=== PATIENT | female | born 1995 | race Caucasian/White ===

== ENCOUNTER 2018-04-23 17:23 | Emergency (ER) | payer OTHER ==
[2018-04-23] MEDS ORDERED: SODIUM CHLORIDE 0.9% 1,000 ML IV ONE (17:57)
[2018-04-23 18:45] LABS: Anisocytosis Slight; Basophils # (A) 0.1 k/uL (0-0.2); Basophils % (A) 1 %; Eosinophils # (A) 0.4 k/uL (0-0.7); Eosinophils % (A) 4 %; HGB 11.3 gm/dL (11.4-16.0); Hypochromasia Slight; Lymphocytes # (A) 1.9 k/uL (1.0-4.8); Lymphocytes % (A) 22 %; MCH 22.7 pg (25.0-35.0); MCHC 30.5 g/dL (31.0-37.0); MCV 74.5 fL (80.0-100.0); Microcytosis Moderate; Monocytes # (A) 0.4 k/uL (0-1.0); Monocytes % (A) 4 %; Neutrophils # (A) 5.9 k/uL (1.3-7.7); Neutrophils % (A) 68 %; Platelet Count 305 k/uL (150-450); RBC 4.97 m/uL (3.80-5.40); WBC 8.7 k/uL (3.8-10.6)
[2018-04-23 18:59] LABS: ALT 35 U/L (9-52); AST 23 U/L (14-36); Albumin 4.3 g/dL (3.5-5.0); Alkaline Phosphatase 55 U/L (38-126); Anion Gap 11 mmol/L; Blood Urea Nitrogen 15 mg/dL (7-17); Calcium 9.3 mg/dL (8.4-10.2); Carbon Dioxide 24 mmol/L (22-30); Chloride 106 mmol/L (98-107); Glucose 82 mg/dL (74-99); Potassium 3.6 mmol/L (3.5-5.1); Sodium 141 mmol/L (137-145); Total Bilirubin 0.4 mg/dL (0.2-1.3); Total Protein 7.5 g/dL (6.3-8.2)
[2018-04-23 19:12] VITALS: TEMP 98.4
[2018-04-23 19:12] LABS: HCG,Quantitative Serum 3.5 mIU/mL
--- NOTE | 2018-04-23 20:02 | US ---
EXAMINATION TYPE: Transabdominal DATE OF EXAM: 04/23/2018 6:59 PM COMPARISON: Early OB in 2013 CLINICAL HISTORY: pain. Pt states vaginal bleeding that started today/ denies pain EXAM PERFORMED: Transvaginal (TV) and Transabdominal (TA) EXAM MEASUREMENTS: GESTATIONAL AGE / DATING Physician Established: Not yet established Dates by LMP: (4 weeks/6 days) EDC: 12/25/2018 Dates by First Scan: No prior Dates by Current Scan for: No IUP seen at this time MATERNAL ANATOMY Uterus: 7.9 x 3.9 x 4.6 cm Right Ovary: 3.0 x 1.9 x 1.8 cm Left Ovary: Unable to visualize normal left ovary, large echogenic area within left adnexa= 7.3 x 3.6 x 6.4 cm ?bowel vs. possible dermoid vs. other etiology Post CDS / Adnexa: left adnexal abnormality Presence of free fluid: No Presence of corpus luteal cyst: No GESTATION / SURVEY IUP: No IUP seen at this time, endo thickness= 1.7 cm Date of LMP: 03/20/2018 Beta HcG (if available): Not available at this time IMPRESSION: Uterus is empty. Solid mass in the left adnexal region is seen. Margins are indistinct. Follow-up is recommended. No evidence of a gestational sac. No free fluid. CT scan would be useful for further evaluation if cl inically indicate d.
--- NOTE | 2018-04-23 20:07 | ED ---
Female Urogenital HPI - General Chief complaint: Vaginal Bleeding Stated complaint: Bleeding-6 wks pg Time Seen by Provider: 04/23/18 17:56 Source: patient Mode of arrival: ambulatory Limitations: no limitations - History of Present Illness Initial comments: 23-year-old female presenting today for chief complaint of positive test with vaginal bleeding. Patient states she took a positive test 2 weeks ago. She states her last menstrual period was 2017. Patient denies any abdominal cramping or pain. Patient denies any vaginal discharge fever chills or night sweats. Patient states she began bleeding today about an hour prior to presentation and presented for evaluation. Patient states the bleeding is not very heavy, however it is bright red blood. Patient denies any nausea or vomiting. Remaining review of systems negative, patient denies any recent fever, chills, shortness of breath, chest pain, numbness or tingling, dysuria or hematuria, constipation or diarrhea , headaches or visual changes, or any other complaints. Patient presents emergency department this evening with concern for spontaneous . Upon arrival patient's vital signs within normal limits. - Related Data Home Medications Medication Instructions Recorded Confirmed Beclomethasone Dipropionate [Qvar 1 - 2 puff INHALATION RT-BID 02/17/14 04/23/18 40 mcg/puff] Pnv with Ca,No.72/Iron/FA 1 each PO DAILY 02/17/14 04/23/18 [ Plus Multivitamin Tab] Albuterol Inhaler [Ventolin Hfa 2 puff INHALATION RT-Q4H PRN 04/23/18 04/23/18 Inhaler] Montelukast [Singulair] 10 mg PO DAILY 04/23/18 04/23/18 Allergies Allergy/AdvReac Type Severity Reaction Status Date / Time No Known Allergies Allergy Verified 04/23/18 18:08 Review of Systems ROS Statement: Those systems with pertinent positive or pertinent negative responses have been documented in the HPI. ROS Other: All systems not noted in ROS Statement are negative. Past Medical History Past Medical History: Asthma History of Any Multi-Drug Resistant Organisms: None Reported Past Surgical History: No Surgical Hx Reported Past Anesthesia/Blood Transfusion Reactions: No Reported Reaction Past Psychological History: Anxiety, Bipolar, PTSD Smoking Status: Never smoker Past Alcohol Use History: None Reported Past Drug Use History: None Reported - Past Family History Mother Family Medical History: Thyroid Disorder General Exam - General Exam Comments Initial Comments: General: The patient is awake and alert, in no distress, and does not appear acutely ill. Eye: Pupils are equal, round and reactive to light, extra-ocular movements are intact. No nystagmus. There is normal conjunctiva bilaterally. No signs of icterus. Ears, nose, mouth and throat: There are moist mucous membranes and no oral lesions. Neck: The neck is supple, there is no tenderness or JVD. Cardiovascular: There is a regular rate and rhythm. No murmur, rub or gallop is appreciated. Respiratory: Lungs are clear to auscultation, respirations are non-labored, breath sounds are equal. No wheezes, stridor, rales, or rhonchi. Gastrointestinal: Soft, non-distended, non-tender abdomen without masses or organomegaly noted. There is no rebound or guarding present. No CVA tenderness. Bowel sounds are unremarkable. Physical exam; no external lesions, vaginal mucosa pink well rugated, no evidence of discharge. There is blood in vaginal vault this is small, no evidence of vaginal laceration. Cervical os open. Adnexal or cervical motion tenderness. No palpable masses. Musculoskeletal: Normal ROM, no tenderness. Strength 5/5. Sensation intact. Radial pulses equal bilaterally 2+. Neurological: A&O x 3. CN II-XII intact, There are no obvious motor or sensory deficits. Coordination appears grossly intact. Speech is normal. Skin: Skin is warm and dry and no rashes or lesions are noted. Psychiatric: Cooperative, appropriate mood & affect, normal judgment. Limitations: no limitations Course Vital Signs 04/23/18 04/23/18 04/23/18 17:29 19:10 20:16 Temperature 97.6 F 98.4 F Pulse Rate 72 59 L 75 Respiratory 20 17 18 Rate Blood Pressure 132/75 135/78 117/68 O2 Sat by Pulse 99 100 100 Oximetry Medical Decision Making - Medical Decision Making Appearing 23-year-old female. Patient has painless vaginal bleeding with positive test 2 weeks prior concerning for miscarriage. Eyes open on pelvic examination with small amount of blood. HCG Quant extremely low within normal limits for typical female concerning for miscarriage. Ultrasound revealed no intrauterine or uterine however there was evidence of a mass in the left adnexa not consistent with ectopic however concerning for dermoid or possibly bowel. We did consult CRYPTOGRAPHY TEACHER attending provider Dr. Garrett spoke with entertainment & media correspondent physician Dr Elizondo. He recommended outpatient f/ u. All findings including incidental finding were discussed with patient. She verbalizes understanding. Patient is A+. No program indicated at this time. Patient requesting discharge stating she will take her IV out herself if it is not removed now so she can leave. At this time both myself and attending provider comfortable discharge. Patient discharged stable condition. Hemodynamically stable with vital signs within acceptable limits. return parameters were discussed the patient who verbalizes understanding, this including immediate return for any pain - Lab Data Result diagrams: 04/23/18 18:30 04/23/18 18:30 Lab Results 04/23/18 04/23/18 04/23/18 Range/Units 18:30 18:30 18:30 WBC 8.7 (3.8-10.6) k/uL RBC 4.97 (3.80-5.40) m/uL Hgb 11.3 L (11.4-16.0) gm/dL Hct 37.0 (34.0-46.0) % MCV 74.5 L (80.0-100.0) fL MCH 22.7 L (25.0-35.0) pg MCHC 30.5 L (31.0-37.0) g/dL RDW 18.0 H (11.5-15.5) % Plt Count 305 (150-450) k/uL Neutrophils % 68 % Lymphocytes % 22 % Monocytes % 4 % Eosinophils % 4 % Basophils % 1 % Neutrophils # 5.9 (1.3-7.7) k/uL Lymphocytes # 1.9 (1.0-4.8) k/uL Monocytes # 0.4 (0-1.0) k/uL Eosinophils # 0.4 (0-0.7) k/uL Basophils # 0.1 (0-0.2) k/uL Hypochromasia Slight Anisocytosis Slight Microcytosis Moderate Sodium 141 (137-145) mmol/L Potassium 3.6 (3.5-5.1) mmol/L Chloride 106 (98-107) mmol/L Carbon Dioxide 24 (22-30) mmol/L Anion Gap 11 mmol/L BUN 15 (7-17) mg/dL Creatinine 0.79 (0.52-1.04) mg/dL Est GFR (CKD-EPI)AfAm >90 (>60 ml/min/1.73 sqM) Est GFR (CKD-EPI)NonAf >90 (>60 ml/min/1.73 sqM) Glucose 82 (74-99) mg/dL Calcium 9.3 (8.4-10.2) mg/dL Total Bilirubin 0.4 (0.2-1.3) mg/dL AST 23 (14-36) U/L ALT 35 (9-52) U/L Alkaline Phosphatase 55 (38-126) U/L Total Protein 7.5 (6.3-8.2) g/dL Albumin 4.3 (3.5-5.0) g/dL HCG, Quant 3.5 mIU/mL Blood Type A Positive Blood Type Recheck No Disposition Clinical Impression: Vaginal bleeding in , Ovarian mass, left Disposition: HOME SELF-CARE Condition: Good Instructions (If sedation given, give patient instructions): Miscarriage (ED) Additional Instructions: Please use medication as discussed. Please follow-up with OBGYN in the next 1- 2 days. Please return to emergency room if the symptoms increase or worsen or for any other concerns. Is patient prescribed a controlled substance at d/c from ED?: No Referrals: Jose De Jesus Goode MD [Primary Care Provider] - 1-2 days Ciltaly Cruz DO [Doctor of Osteopathic Medicine] - 1-2 days Time of Disposition: 21:00
[2018-04-23 20:18] VITALS: BP 117/68; PULSE 75; RESP 18
== END 2018-04-23 21:05 | disposition home or self-care (01) ==
LOC: EC 17:23
DX: O20.9 Hemorrhage in early pregnancy, unspecified (principal); O34.81 Maternal care for other abnormalities of pelvic organs, first trimester; N83.8 Other noninflammatory disorders of ovary, fallopian tube and broad ligament; Z67.10 Type A blood, Rh positive; O99.511 Diseases of the respiratory system complicating pregnancy, first trimester; J45.909 Unspecified asthma, uncomplicated; Z79.51 Long term (current) use of inhaled steroids; Z79.899 Other long term (current) drug therapy; Z3A.01 Less than 8 weeks gestation of pregnancy
CPT/HCPCS: 36415; 76801; 80053; 84702; 85025; 86900; 86901; 96360; 96361; 99284

== ENCOUNTER → 2018-10-15 | Outpatient (CLI) | payer OTHER ==
[2018-10-15 11:29] LABS: HCT 36.1 % (34.0-46.0); HGB 11.4 gm/dL (11.4-16.0); MCH 26.4 pg (25.0-35.0); MCHC 31.7 g/dL (31.0-37.0); MCV 83.3 fL (80.0-100.0); Mean Platelet Volume 8.4; Platelet Count 224 k/uL (150-450); RBC 4.33 m/uL (3.80-5.40); RDW 15.8 % (11.5-15.5)
[2018-10-15 16:08] LABS: African American GFR (CKD) 139.6 (60.0-200.0)
[2018-10-15 17:45] LABS: HIV 1 AB Non-Reactive (Non-Reactive); HIV AB P24 Non-Reactive (Non-Reactive); HIV P24 AG Non-Reactive (Non-Reactive)
[2018-10-18 03:53] LABS: Toxoplasma Antibody (IgG) <3.0 IU/mL (<7.2); Toxoplasma Antibody (IgM) <3.0 AU/mL (<8.0)
== END | disposition home or self-care (01) ==
LOC: LABWHC1 10:58
PROVIDERS: ATTEND Obstetrics & Gynecology
DX: Z34.82 Encounter for supervision of other normal pregnancy, second trimester (principal)
CPT/HCPCS: 36415; 82565; 82947; 85027; 86762; 86777; 86778; 86780; 86850; 86900; 86901; 87340; 87390

== ENCOUNTER 2019-01-26 06:00 | Inpatient (IN) | payer OTHER ==
[2019-01-26] MEDS ORDERED: METHYLERGONOVINE 0.2 MG/ML 1 ML AMP IM PRN (06:48)
[2019-01-26] MEDS ORDERED: CARBOPROST TROMETHAMINE 250 MCG/ML 1 ML AMP IM PRN (06:48)
[2019-01-26] MEDS ORDERED: OXYTOCIN 10 UNIT/ML 1 ML VIAL IM PRN (06:48)
[2019-01-26] MEDS ORDERED: LIDOCAINE 0.5% (PF) 5 MG/ML (50 ML SDV) SQ PRN (06:48)
[2019-01-26] MEDS ORDERED: TERBUTALINE 1 MG/ML VIAL SQ PRN (06:48)
[2019-01-26] MEDS ORDERED: OXYTOCIN 30 UNITS/500 ML NS 30 UNIT in SALINE 1 500ML.BAG IV SCH (07:00)
[2019-01-26] MEDS ORDERED: LACTATED RINGERS 1,000 ML IV SCH ×2 (07:00)
[2019-01-26 07:25] LABS: Anisocytosis Slight; Basophils % (A) 0 %; Eosinophils # (A) 0.2 k/uL (0-0.7); Eosinophils % (A) 2 %; HCT 35.9 % (34.0-46.0); HGB 11.6 gm/dL (11.4-16.0); Hypochromasia Slight; Lymphocytes # (A) 1.9 k/uL (1.0-4.8); Lymphocytes % (A) 20 %; MCH 25.4 pg (25.0-35.0); MCHC 32.4 g/dL (31.0-37.0); MCV 78.3 fL (80.0-100.0); Microcytosis Slight; Monocytes # (A) 0.4 k/uL (0-1.0); Monocytes % (A) 4 %; Neutrophils % (A) 73 %; Platelet Count 259 k/uL (150-450); RBC 4.58 m/uL (3.80-5.40); RDW 16.2 % (11.5-15.5); WBC 9.5 k/uL (3.8-10.6)
[2019-01-26] MEDS ORDERED: fentaNYL (PF) 50 MCG/ML 5 ML AMP ONE (09:35)
[2019-01-26] MEDS ORDERED: SODIUM CHLORIDE 0.9% 100 ML BAG ONE (09:35)
[2019-01-26] MEDS ORDERED: ROPIVACAINE 5MG/ML 20ML VIAL ONE (09:35)
[2019-01-26] MEDS ORDERED: ROPIVACAINE 100 MG, fentaNYL (PF) 200 MCG in SODIUM CHLORIDE 0.9% 76 ML EPIDURAL ONE (10:39)
[2019-01-26] MEDS ORDERED: diphenhydrAMINE 25 MG CAP PO PRN (12:14)
[2019-01-26] MEDS ORDERED: WITCH HAZEL 1 EACH MED..PAD TOPICAL PRN (12:14)
[2019-01-26] MEDS ORDERED: diphenhydrAMINE 50 MG/ML 1 ML VIAL IVP PRN ×2 (12:14)
[2019-01-26] MEDS ORDERED: ZOLPIDEM 5 MG TAB PO PRN (12:14)
[2019-01-26] MEDS ORDERED: diphenhydrAMINE 50 MG CAP PO PRN (12:14)
[2019-01-26] MEDS ORDERED: SIMETHICONE 80 MG CHEWABLE PO PRN (12:14)
[2019-01-26] MEDS ORDERED: ACETAMINOPHEN TAB 325 MG TAB PO PRN (12:14)
[2019-01-26] MEDS ORDERED: HYDROCORTISONE 2.5% RECTAL CREAM 30 GM TUBE RECTAL PRN (12:14)
[2019-01-26] MEDS ORDERED: LANOLIN CREAM 5 GM TUBE TOPICAL PRN (12:14)
[2019-01-26] MEDS ORDERED: BENZOCAINE/MENTHOL SPRAY 1 GM/SPRAY AEROSOL TOPICAL PRN (12:14)
[2019-01-26] MEDS ORDERED: OXYTOCIN 20 UNITS/1000 ML NS 1,000 ML IV SCH (12:15)
[2019-01-26] MEDS: IBUPROFEN 600 MG TAB PO PRN (12:45)
--- NOTE | 2019-01-26 13:20 | P.HPOB ---
History of Present Illness H&P Date: 01/26/19 Chief Complaint: Intrauterine at term: Induction of labor Patient is a 23-year-old at 39 weeks 2 days' gestation who arrives for induction of labor. Her Precis course has been, complicated by late care which she initiated at approximately 23 weeks. At one point she did have some itching in her stretch rehman the concern was that she had possibility of cholestasis versus polyps a steroid cream was provided and improved symptoms. Otherwise she is feeling well and she is headed on remarkable . Pertinent labs do include A+ blood type Rh antibody was negative, rubella immune, hepatitis B surface antigen/RPR and HIV as well as groupie strep were all negative. A category 1 tracing is noted and artificial rupture membranes was performed with her dilated to 2 cm 70% effaced -2 station. Plan Pitocin augmentation of labor and she anticipates use of an epidural for analgesia. Past Medical History Past Medical History: Asthma History of Any Multi-Drug Resistant Organisms: None Reported Past Surgical History: No Surgical Hx Reported Past Anesthesia/Blood Transfusion Reactions: No Reported Reaction Past Psychological History: Anxiety, Bipolar, PTSD Smoking Status: Never smoker Past Alcohol Use History: None Reported Past Drug Use History: None Reported - Past Family History Mother Family Medical History: Thyroid Disorder Medications and Allergies Home Medications Medication Instructions Recorded Confirmed Type Beclomethasone Dipropionate [Qvar 1 - 2 puff INHALATION RT-BID 02/17/14 01/26/19 History 40 mcg/puff] RX: Pnv with Ca,No.72/Iron/FA 1 each PO DAILY 02/17/14 04/23/18 History [ Plus Multivitamin Tab] Montelukast [Singulair] 10 mg PO DAILY 04/23/18 01/26/19 History RX: Albuterol Inhaler [Ventolin 2 puff INHALATION RT-Q4H PRN 04/23/18 01/26/19 History Hfa Inhaler] Allergies Allergy/AdvReac Type Severity Reaction Status Date / Time No Known Allergies Allergy Verified 04/23/18 18:08 Exam Osteopathic Statement: *. No significant issues noted on an osteopathic structural exam other than those noted in the History and Physical/Consult. Vital Signs Temp Pulse Resp BP 01/26/19 12:45 82 18 129/60 01/26/19 12:30 82 18 123/56 01/26/19 12:15 86 18 147/65 01/26/19 12:00 92 18 150/58 01/26/19 11:45 98.0 F 100 18 155/72 01/26/19 06:45 98.2 F 16 135/76 Intake and Output 01/25/19 01/26/19 01/26/19 22:59 06:59 14:59 Other: Weight 87.453 kg - OBG Physical Exam Breast: both: normal (no masses) Abdomen: bowel sounds normal, no diffuse tenderness, no bruit present, no guarding noted, no hepatomegaly, no splenomegaly, no mass Vulva: both: normal Vagina: normal moisture, no discharge Cervix: no lesion, no discharge Uterus: normal size, normal contour Adnexa: both: normal Anus/Rectum: normal perianal skin, no rectal mass, no hemorrhoids, heme negative Results Result Diagrams: 01/26/19 07:05 Abnormal Lab Results - Last 24 Hours (Table) 01/26/19 Range/Units 07:05 MCV 78.3 L (80.0-100.0) fL RDW 16.2 H (11.5-15.5) %
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
[2019-01-26] MEDS ORDERED: ALBUTEROL NEBULIZED 2.5 MG/3 ML INHALATION STA ×2 (15:03→21:52)
[2019-01-26] MEDS: SENNOSIDES-DOCUSATE SODIUM 1 EACH TAB PO SCH (22:02)
[2019-01-26] MEDS ORDERED: ALBUTEROL NEBULIZED 2.5 MG/3 ML INHALATION PRN (22:18)
[2019-01-27] MEDS: SENNOSIDES-DOCUSATE SODIUM 1 EACH TAB PO SCH (08:36)
[2019-01-27] MEDS: IBUPROFEN 600 MG TAB PO PRN (08:36)
--- NOTE | 2019-01-27 08:47 | P.PNOBGVD ---
Subjective - Subjective Patient reports: Reports appetite normal, Reports voiding normally, Reports pain well controlled, Reports ambulating normally : doing well Objective - Latest Vital Signs Latest vital signs: Vital Signs Temp Pulse Pulse Resp BP 01/27/19 00:00 98.1 F 66 18 129/62 01/26/19 22:21 88 01/26/19 22:14 84 01/26/19 20:00 98.3 F 66 18 139/66 01/26/19 16:00 97.6 F 86 16 148/64 01/26/19 15:24 84 01/26/19 15:12 84 01/26/19 13:45 91 16 140/64 01/26/19 13:15 98.2 F 93 18 136/60 01/26/19 12:45 82 18 129/60 01/26/19 12:30 82 18 123/56 01/26/19 12:15 86 18 147/65 01/26/19 12:00 92 18 150/58 01/26/19 11:45 98.0 F 100 18 155/72 Intake and Output 01/26/19 01/27/19 01/27/19 22:59 06:59 14:59 Intake Total 500 Balance 500 Intake: Oral 500 Other: # Voids 1 1 - Exam Lungs: bilateral: normal Chest: Normal S1, Normal S2 Extremities: Present: normal Abdomen: Present: normal appearance, soft Uterus: Present: normal, firm Assessment and Plan Assessment: day #1. Patient is resting without new complaints. Vital signs are stable she did have 1 elevated blood pressure 149 systolic. Patient had no elevated blood pressures during her or intrapartum however I am going to precautionary check some preeclampsia labs. If her labs are normal and repeat blood pressures are fine she does wish to go home today and I feel that she is stable for this. Plan today is to continue routine care, check blood work, and some serial blood pressures. As above a fall is normal we'll continue to let her go home per her request. (1) Normal vaginal delivery Current Visit: Yes Status: Acute Code(s): O80 - ENCOUNTER FOR FULL-TERM UNCOMPLICATED DELIVERY SNOMED Code(s): 99502931
[2019-01-27 08:55] VITALS: RESP 16; TEMP 98.5
--- NOTE | 2019-01-27 08:55 | P.DS ---
Providers Date of admission: 01/26/19 06:34 Expected date of discharge: 01/27/19 Attending physician: Greg Richey Primary care physician: Stated None - Discharge Diagnosis(es) (1) Normal vaginal delivery Current Visit: Yes Status: Acute Hospital Course: Please see dictated H&P per Dr. Neff and this patient's admission. Brief summary this is a 23-year-old 4 para 1 female 39-2/7 weeks gestation is admitted to labor and delivery for requested induction of labor. Patient is admitted has uncomplicated induction of labor goes on have a vaginal delivery viable male infant. Please see dictated delivery note. patient did do well. She did have an elevated blood pressure I did check preeclampsia labs which are pending at time of this dictation. Procedures: Induction of labor and normal vaginal delivery Patient Condition at Discharge: Good Plan - Discharge Summary New Discharge Prescriptions: New Ibuprofen [Motrin] 600 mg PO Q6HR PRN #30 tab PRN Reason: Mild Pain Or Fever >= 100.5 No Action Beclomethasone Dipropionate [Qvar 40 mcg/puff] 1 - 2 puff INHALATION RT-BID Pnv with Ca,No.72/Iron/FA [ Plus Multivitamin Tab] 1 each PO DAILY Albuterol Inhaler [Ventolin Hfa Inhaler] 2 puff INHALATION RT-Q4H PRN PRN Reason: Dyspnea Montelukast [Singulair] 10 mg PO DAILY Discharge Medication List Beclomethasone Dipropionate [Qvar 40 mcg/puff] 1 - 2 puff INHALATION RT-BID 02/17/14 [History] Pnv with Ca,No.72/Iron/FA [ Plus Multivitamin Tab] 1 each PO DAILY 02/17/14 [History] Albuterol Inhaler [Ventolin Hfa Inhaler] 2 puff INHALATION RT-Q4H PRN 04/23/18 [History] Montelukast [Singulair] 10 mg PO DAILY 04/23/18 [History] Ibuprofen [Motrin] 600 mg PO Q6HR PRN #30 tab 01/27/19 [Rx] Follow up Appointment(s)/Referral(s): Greg Richey DO [Doctor of Osteopathic Medicine] - 03/11/19 11:15 am Patient Instructions/Handouts: Vaginal Delivery (DC) Activity/Diet/Wound Care/Special Instructions: No intercourse or anything per vagina for 6 weeks. Please call if any fever, chills, excessive vaginal bleeding, and/or abdominal pain. Discharge Disposition: HOME SELF-CARE
[2019-01-27 09:11] VITALS: PULSE 80
[2019-01-27 09:16] LABS: Anisocytosis Slight; Basophils % (A) 0 %; Eosinophils # (A) 0.1 k/uL (0-0.7); Eosinophils % (A) 1 %; HCT 32.5 % (34.0-46.0); HGB 10.3 gm/dL (11.4-16.0); Hypochromasia Slight; Lymphocytes # (A) 1.7 k/uL (1.0-4.8); Lymphocytes % (A) 17 %; MCH 24.9 pg (25.0-35.0); MCHC 31.7 g/dL (31.0-37.0); MCV 78.6 fL (80.0-100.0); Mean Platelet Volume 9.3; Microcytosis Slight; Monocytes # (A) 0.3 k/uL (0-1.0); Monocytes % (A) 3 %; Neutrophils # (A) 7.6 k/uL (1.3-7.7); Neutrophils % (A) 77 %; Platelet Count 211 k/uL (150-450); RBC 4.13 m/uL (3.80-5.40); RDW 16.2 % (11.5-15.5); WBC 9.8 k/uL (3.8-10.6)
[2019-01-27 09:28] LABS: Bilirubin, Delta 0.1 mg/dL (0.0-0.2); Bilirubin,Unconjugated 0.3 mg/dL (0.0-1.1); Total Bilirubin 0.4 mg/dL (0.2-1.3); Total Protein 5.6 g/dL (6.3-8.2); Uric Acid 5.5 mg/dL (3.7-7.4)
[2019-01-27 11:11] VITALS: BP 118/56
== END 2019-01-27 12:30 | disposition home or self-care (01) | DRG 807 ==
LOC: 4FBP 06:34
PROVIDERS: ADMIT Obstetrics & Gynecology; ATTEND Obstetrics & Gynecology
PROC: 3E033VJ Introduction of Other Hormone into Peripheral Vein, Percutaneous Approach (ICD-10-PCS; principal; 2019-01-26)
PROC: 10E0XZZ Delivery of Products of Conception, External Approach (ICD-10-PCS; 2019-01-26)
PROC: 0HQ9XZZ Repair Perineum Skin, External Approach (ICD-10-PCS; 2019-01-26)
DX: O99.344 Other mental disorders complicating childbirth (principal); Z37.0 Single live birth; O99.52 Diseases of the respiratory system complicating childbirth; O70.0 First degree perineal laceration during delivery; J45.909 Unspecified asthma, uncomplicated; F43.10 Post-traumatic stress disorder, unspecified; F31.9 Bipolar disorder, unspecified; F41.9 Anxiety disorder, unspecified; Z3A.39 39 weeks gestation of pregnancy; Z79.899 Other long term (current) drug therapy; O69.81X0 Labor and delivery complicated by cord around neck, without compression, not applicable or unspecified; R03.0 Elevated blood-pressure reading, without diagnosis of hypertension
CPT/HCPCS: 80076; 84550; 85025; 86850; 86900; 86901; 94640

== ENCOUNTER 2019-02-28 12:45 | Emergency (ER) | payer OTHER ==
[2019-02-28 13:53] VITALS: BP 139/81; PULSE 104; RESP 20; TEMP 97.8
[2019-02-28] MEDS ORDERED: PROPARACAINE 0.5% OPHTH DROPS 15 ML BTL RIGHT EYE STA (13:54)
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
== END 2019-02-28 14:11 | disposition home or self-care (01) ==
LOC: EC 12:45
DX: S05.01XA Injury of conjunctiva and corneal abrasion without foreign body, right eye, initial encounter (principal); J45.909 Unspecified asthma, uncomplicated; Z79.51 Long term (current) use of inhaled steroids; Z79.899 Other long term (current) drug therapy; W50.0XXA Accidental hit or strike by another person, initial encounter
CPT/HCPCS: 99283

== ENCOUNTER 2020-07-12 14:28 | Emergency (ER) | payer OTHER ==
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
[2020-07-12 15:51] LABS: Amphetamine Screen,Urine Not Detected (NotDetected); Barbiturate Screen,Urine Not Detected (NotDetected); Benzodiazepines Screen,Urine Not Detected (NotDetected); Cocaine Screen,Urine Not Detected (NotDetected); Methadone Screen, Urine Not Detected (NotDetected); Opiate Screen,Urine Not Detected (NotDetected); Oxycodone Screen, Urine Not Detected (NotDetected); Phencyclidine Screen,Urine Not Detected (NotDetected); Tricyclic Antidepressant,Urine Not Detected (NotDetected); Urn Cannabinoid Scrn Detected (NotDetected)
[2020-07-12 20:41] VITALS: BP 120/71; PULSE 70; RESP 17; TEMP 98.1
== END 2020-07-12 20:41 | disposition home or self-care (01) ==
LOC: EC 14:28
DX: F31.9 Bipolar disorder, unspecified (principal); F41.9 Anxiety disorder, unspecified; J45.909 Unspecified asthma, uncomplicated; Z79.51 Long term (current) use of inhaled steroids; Z79.899 Other long term (current) drug therapy
CPT/HCPCS: 80306; 99285

== ENCOUNTER 2020-10-13 11:06 | Emergency (ER) | payer OTHER ==
[2020-10-13 11:34] VITALS: BP 121/69; PULSE 79; RESP 16; TEMP 98.1
[2020-10-13] MEDS ORDERED: PROPARACAINE 0.5% OPHTH DROPS 15 ML BTL RIGHT EYE STA (11:41)
[2020-10-13] MEDS ORDERED: FLUORESCEIN STRIPS 1 MG STRIP RIGHT EYE ONE (11:42)
[2020-10-13] MEDS ORDERED: TOBRAMYCIN 0.3% OPHTH OINT 3.5 GM TUBE RIGHT EYE STA (12:16)
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
== END 2020-10-13 12:31 | disposition home or self-care (01) ==
LOC: EC 11:06
DX: S05.01XA Injury of conjunctiva and corneal abrasion without foreign body, right eye, initial encounter (principal); J45.909 Unspecified asthma, uncomplicated; F41.9 Anxiety disorder, unspecified; F31.9 Bipolar disorder, unspecified; F43.12 Post-traumatic stress disorder, chronic; F12.90 Cannabis use, unspecified, uncomplicated; X58.XXXA Exposure to other specified factors, initial encounter
CPT/HCPCS: 99283

== ENCOUNTER 2020-12-15 19:20 | Inpatient (IN) | payer MEDICAID, OTHER ==
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
[2020-12-15 20:13] LABS: Amphetamine Screen,Urine Not Detected (NotDetected); Barbiturate Screen,Urine Not Detected (NotDetected); Benzodiazepines Screen,Urine Not Detected (NotDetected); Cocaine Screen,Urine Not Detected (NotDetected); Methadone Screen, Urine Not Detected (NotDetected); Opiate Screen,Urine Not Detected (NotDetected); Oxycodone Screen, Urine Not Detected (NotDetected); Phencyclidine Screen,Urine Not Detected (NotDetected); Tricyclic Antidepressant,Urine Not Detected (NotDetected); Urn Cannabinoid Scrn Detected (NotDetected)
[2020-12-15] MEDS ORDERED: LORazepam 1 MG TAB PO PRN (21:54)
[2020-12-15] MEDS ORDERED: MAG HYDROX/AL HYDROX/SIMETH 30 ML CUP PO PRN (21:54)
[2020-12-15] MEDS ORDERED: ACETAMINOPHEN TAB 325 MG TAB PO PRN (21:54)
[2020-12-15] MEDS ORDERED: MAGNESIUM HYDROXIDE 2,400 MG/10 ML CUP PO PRN (21:54)
[2020-12-15] MEDS ORDERED: LORazepam 2 MG/ML INJ IM PRN (21:59)
[2020-12-15] MEDS ORDERED: haloperidoL 5 MG TAB PO PRN (22:00)
[2020-12-15] MEDS ORDERED: HALOPERIDOL LACTATE 5 MG/ML 1 ML VIAL IM PRN (22:00)
[2020-12-15] MEDS: ALBUTEROL HFA INHALER INHALATION PRN (22:56)
[2020-12-16 06:32] VITALS: RESP 18
[2020-12-16 06:49] LABS: Basophils % (A) 1 %; Eosinophils # (A) 0.3 k/uL (0-0.7); Eosinophils % (A) 5 %; HCT 46.2 % (34.0-46.0); HGB 14.6 gm/dL (11.4-16.0); Lymphocytes # (A) 1.4 k/uL (1.0-4.8); Lymphocytes % (A) 26 %; MCHC 31.5 g/dL (31.0-37.0); Mean Platelet Volume 8.6; Monocytes # (A) 0.5 k/uL (0-1.0); Monocytes % (A) 9 %; Neutrophils # (A) 3.1 k/uL (1.3-7.7); Neutrophils % (A) 56 %; Platelet Count 240 k/uL (150-450); RDW 15.1 % (11.5-15.5); WBC 5.5 k/uL (3.8-10.6)
[2020-12-16 07:09] LABS: ALT 17 U/L (4-34); AST 25 U/L (14-36); African American GFR (CKD) >90 (>60 ml/min/1.73 sqM); Albumin 4.2 g/dL (3.5-5.0); Alkaline Phosphatase 62 U/L (38-126); Anion Gap 10 mmol/L; Blood Urea Nitrogen 7 mg/dL (7-17); Calcium 9.4 mg/dL (8.4-10.2); Carbon Dioxide 23 mmol/L (22-30); Chloride 107 mmol/L (98-107); Glucose 97 mg/dL (74-99); Non-African American GFR(CKD) >90 (>60 ml/min/1.73 sqM); Potassium 3.7 mmol/L (3.5-5.1); Sodium 140 mmol/L (137-145); Total Bilirubin 0.6 mg/dL (0.2-1.3); Total Protein 6.9 g/dL (6.3-8.2)
[2020-12-16] MEDS: FERROUS SULFATE 325 MG TAB PO SCH (08:25)
[2020-12-16] MEDS: MONTELUKAST 10 MG TAB PO SCH (08:25)
[2020-12-16] MEDS: ALBUTEROL HFA INHALER INHALATION PRN ×2 (08:26→21:16)
[2020-12-16] MEDS: NICOTINE 14MG/24HR PATCH TRANSDERM SCH (08:26)
[2020-12-16] MEDS ORDERED: busPIRone HCl 5 MG TAB PO SCH (09:00)
[2020-12-16] MEDS ORDERED: INFLUENZA VACC (6 MOS-64 YRS) 60 MCG/0.5 ML SYRINGE IM ONE (09:00)
[2020-12-16] MEDS ORDERED: lamoTRIgine 25 MG TAB PO SCH (09:00)
[2020-12-16] MEDS ORDERED: PNEUMOCOCCAL VACC-PNEUMOVAX 23 25 MCG/0.5 ML VIAL IM ONE (09:00)
[2020-12-16] MEDS ORDERED: lamoTRIgine 25 MG TAB PO ONE (11:04)
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
[2020-12-16] MEDS ORDERED: BENZONATATE 100 MG CAP PO PRN (15:49)
--- NOTE | 2020-12-16 16:11 | XR ---
EXAMINATION TYPE: XR chest 1V portable DATE OF EXAM: 12/16/2020 COMPARISON: NONE HISTORY: Cough and congestion TECHNIQUE: Single view FINDINGS: Heart and mediastinum are normal. Lungs are clear. Diaphragm is normal. Bony thorax is inta ct. IMPRESSION: Normal chest.
[2020-12-16] MEDS: predniSONE 20 MG TAB PO SCH (16:42)
[2020-12-16] MEDS: traZODone HCL 50 MG TAB PO SCH (20:35)
[2020-12-16] MEDS: DOXYCYCLINE 100 MG CAP PO SCH (20:35)
[2020-12-16] MEDS: lamoTRIgine 25 MG TAB PO SCH (20:36)
[2020-12-16] MEDS: busPIRone HCl 5 MG TAB PO SCH (20:36)
[2020-12-16] MEDS ORDERED: hydrOXYzine pamoate 25 MG CAP PO SCH (21:00)
[2020-12-17 08:23] LABS: Basophils % (A) 0 %; Eosinophils % (A) 0 %; Lymphocytes # (A) 1.3 k/uL (1.0-4.8); Lymphocytes % (A) 22 %; MCH 28.5 pg (25.0-35.0); MCV 88.9 fL (80.0-100.0); Mean Platelet Volume 8.6; Monocytes # (A) 0.4 k/uL (0-1.0); Monocytes % (A) 7 %; Neutrophils # (A) 3.9 k/uL (1.3-7.7); Neutrophils % (A) 68 %; Platelet Count 280 k/uL (150-450); RBC 5.28 m/uL (3.80-5.40); RDW 15.1 % (11.5-15.5); WBC 5.8 k/uL (3.8-10.6)
[2020-12-17 08:33] LABS: African American GFR (CKD) >90 (>60 ml/min/1.73 sqM); Anion Gap 10 mmol/L; Blood Urea Nitrogen 11 mg/dL (7-17); Calcium 9.9 mg/dL (8.4-10.2); Carbon Dioxide 22 mmol/L (22-30); Chloride 107 mmol/L (98-107); Glucose 102 mg/dL (74-99); Non-African American GFR(CKD) >90 (>60 ml/min/1.73 sqM); Potassium 4.5 mmol/L (3.5-5.1); Sodium 139 mmol/L (137-145)
[2020-12-17] MEDS: FERROUS SULFATE 325 MG TAB PO SCH (08:50)
[2020-12-17] MEDS: MONTELUKAST 10 MG TAB PO SCH (08:50)
[2020-12-17] MEDS: lamoTRIgine 25 MG TAB PO SCH ×2 (08:50→20:30)
[2020-12-17] MEDS: busPIRone HCl 5 MG TAB PO SCH ×2 (08:50→20:30)
[2020-12-17] MEDS: DOXYCYCLINE 100 MG CAP PO SCH ×2 (08:51→20:30)
[2020-12-17] MEDS: predniSONE 20 MG TAB PO SCH (08:51)
[2020-12-17] MEDS: ALBUTEROL HFA INHALER INHALATION PRN ×2 (08:52→20:28)
[2020-12-17] MEDS: NICOTINE 14MG/24HR PATCH TRANSDERM SCH (08:57)
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
[2020-12-17] MEDS: traZODone HCL 50 MG TAB PO SCH (20:30)
[2020-12-18 06:34] VITALS: BP 108/63; PULSE 73; TEMP 97.9
[2020-12-18] MEDS: NICOTINE 14MG/24HR PATCH TRANSDERM SCH (08:12)
[2020-12-18] MEDS: FERROUS SULFATE 325 MG TAB PO SCH (08:13)
[2020-12-18] MEDS: MONTELUKAST 10 MG TAB PO SCH (08:13)
[2020-12-18] MEDS: DOXYCYCLINE 100 MG CAP PO SCH (08:13)
[2020-12-18] MEDS: lamoTRIgine 25 MG TAB PO SCH (08:13)
[2020-12-18] MEDS: ALBUTEROL HFA INHALER INHALATION PRN (08:13)
[2020-12-18] MEDS: busPIRone HCl 5 MG TAB PO SCH (08:13)
[2020-12-18] MEDS: predniSONE 20 MG TAB PO SCH (08:13)
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
== END 2020-12-18 13:26 | disposition home or self-care (01) | DRG 885 ==
LOC: EC 19:20 → 3MHU 21:46
PROVIDERS: ADMIT Psychiatry & Neurology Psychiatry; ATTEND Psychiatry & Neurology Psychiatry
DX: F31.81 Bipolar II disorder (principal); R45.851 Suicidal ideations; J45.901 Unspecified asthma with (acute) exacerbation; J20.9 Acute bronchitis, unspecified; Z20.822 Contact with and (suspected) exposure to COVID-19; F43.10 Post-traumatic stress disorder, unspecified; F12.10 Cannabis abuse, uncomplicated; D64.9 Anemia, unspecified; G47.00 Insomnia, unspecified; Z79.51 Long term (current) use of inhaled steroids; Z79.899 Other long term (current) drug therapy; Z59.9 Problem related to housing and economic circumstances, unspecified; Z83.49 Family history of other endocrine, nutritional and metabolic diseases
CPT/HCPCS: 71045; 80048; 80053; 80306; 82075; 83036; 84443; 85025; 87635; 99285

== ENCOUNTER 2022-02-10 10:03 | Emergency (ER) | payer OTHER ==
[2022-02-10 10:10] VITALS: BP 129/63; PULSE 58; RESP 16; TEMP 98.3
--- NOTE | 2022-02-10 11:47 | ED ---
General Adult HPI - General Chief complaint: Vaginal Bleeding Stated complaint: 6 wks preg, vaginal bleeding Time Seen by Provider: 02/10/22 11:23 Source: patient Mode of arrival: ambulatory Limitations: no limitations - History of Present Illness Initial comments: 27-year-old female coming into the emergency department for vaginal bleeding that started this morning. She notes the blood is bright red and admits to passing clots and vaginal cramping. She denies fever, chills, nausea, vomiting, dysuria. LMP 12/27/2021. Her OB is Dr. Mary. She admits to 2 miscarriages in the past. - Related Data Home Medications Medication Instructions Recorded Confirmed Montelukast [Singulair] 10 mg PO DAILY 04/23/18 12/15/20 Albuterol Sulfate [Albuterol 2 puff PO RT-Q6H PRN 02/10/22 02/10/22 Sulfate Hfa] Budesonide/Formoterol Fumarate 2 puff INHALATION RT-DAILY 02/10/22 02/10/22 [Symbicort 160-4.5 Mcg Inhaler] Allergies Allergy/AdvReac Type Severity Reaction Status Date / Time No Known Allergies Allergy Verified 02/10/22 13:50 Review of Systems ROS Statement: Those systems with pertinent positive or pertinent negative responses have been documented in the HPI. ROS Other: All systems not noted in ROS Statement are negative. Past Medical History Past Medical History: Asthma History of Any Multi-Drug Resistant Organisms: None Reported Past Surgical History: No Surgical Hx Reported Past Anesthesia/Blood Transfusion Reactions: No Reported Reaction Past Psychological History: Anxiety, Bipolar, PTSD Smoking Status: Never smoker Past Alcohol Use History: None Reported Past Drug Use History: Marijuana - Past Family History Mother Family Medical History: Thyroid Disorder General Exam Limitations: no limitations General appearance: alert, in no apparent distress Head exam: Present: atraumatic, normocephalic, normal inspection Eye exam: Present: normal appearance, PERRL, EOMI. Absent: scleral icterus, conjunctival injection, periorbital swelling ENT exam: Present: normal exam, mucous membranes moist Neck exam: Present: normal inspection. Absent: tenderness, meningismus, lymphadenopathy Respiratory exam: Present: normal lung sounds bilaterally. Absent: respiratory distress, wheezes, rales, rhonchi, stridor Cardiovascular Exam: Present: regular rate, normal rhythm, normal heart sounds. Absent: systolic murmur, diastolic murmur, rubs, gallop, clicks GI/Abdominal exam: Present: soft, normal bowel sounds. Absent: distended, tenderness, guarding, rebound, rigid Extremities exam: Present: normal inspection, full ROM, normal capillary refill. Absent: tenderness, pedal edema, joint swelling, calf tenderness Back exam: Present: normal inspection Neurological exam: Present: alert, oriented X3, CN II-XII intact Psychiatric exam: Present: normal affect, anxious Skin exam: Present: warm, dry, intact, normal color. Absent: rash Course Vital Signs 02/10/22 10:08 Temperature 98.3 F Pulse Rate 58 L Respiratory 16 Rate Blood Pressure 129/63 O2 Sat by Pulse 98 Oximetry Medical Decision Making - Medical Decision Making 27-year-old female coming into the emergency department for vaginal bleeding. She had lab work done ultrasound imaging performed while in the ED.. WBC 8.9, HGB 12.5, BMP unremarkable, HCG total beta 1741.5, UA negative for ketones, LE, nitrites.US remarkable for small anechoic intrauterine cystic structure without evidence for yold sac or pole. I discussed in detail results with patient and importance of follow-up with beta hCG within 48 hours. All questions addressed. Case discussed with Dr. Young. - Lab Data Result diagrams: 02/10/22 12:42 02/10/22 12:42 Lab Results 02/10/22 02/10/22 12 Range/Units 12:42 12:42 12:54 WBC 8.9 (3.8-10.6) k/uL RBC 4.86 (3.80-5.40) m/uL Hgb 12.5 (11.4-16.0) gm/dL Hct 38.5 (34.0-46.0) % MCV 79.2 L (80.0-100.0) fL MCH 25.6 (25.0-35.0) pg MCHC 32.4 (31.0-37.0) g/dL RDW 14.6 (11.5-15.5) % Plt Count 273 (150-450) k/uL MPV 8.7 Neutrophils % 73 % Lymphocytes % 19 % Monocytes % 3 % Eosinophils % 2 % Basophils % 1 % Neutrophils # 6.6 (1.3-7.7) k/uL Lymphocytes # 1.7 (1.0-4.8) k/uL Monocytes # 0.3 (0-1.0) k/uL Eosinophils # 0.2 (0-0.7) k/uL Basophils # 0.1 (0-0.2) k/uL Hypochromasia Slight Sodium 141 (137-145) mmol/L Potassium 4.0 (3.5-5.1) mmol/L Chloride 108 H (98-107) mmol/L Carbon Dioxide 26 (22-30) mmol/L Anion Gap 7 mmol/L BUN 9 (7-17) mg/dL Creatinine 0.65 (0.52-1.04) mg/dL Est GFR (CKD-EPI)AfAm >90 (>60 ml/min/1.73 sqM) Est GFR (CKD-EPI)NonAf >90 (>60 ml/min/1.73 sqM) Glucose 94 (74-99) mg/dL Calcium 9.5 (8.4-10.2) mg/dL HCG, Quant 1741.5 mIU/mL Urine Color Yellow Urine Appearance Clear (Clear) Urine pH 7.5 (5.0-8.0) Ur Specific [place] 1.020 (1.001-1.035) Urine Protein Trace H (Negative) Urine Glucose (UA) Negative (Negative) Urine Ketones Negative (Negative) Urine Blood Large H (Negative) Urine Nitrite Negative (Negative) Urine Bilirubin Negative (Negative) Urine Urobilinogen <2.0 (<2.0) mg/dL Ur Leukocyte Esterase Negative (Negative) Urine RBC 1 (0-5) /hpf Urine WBC 2 (0-5) /hpf Ur Squamous Epith Cells 1 (0-4) /hpf Urine Bacteria Rare H (None) /hpf Urine Mucus Rare H (None) /hpf Disposition Clinical Impression: Threatened miscarriage Disposition: HOME SELF-CARE Condition: Stable Additional Instructions: Please return to the nearest ER if symptoms of vaginal bleeding worsen or persist. Is patient prescribed a controlled substance at d/c from ED?: No Referrals: None,Stated [Primary Care Provider] - 1-2 days Time of Disposition: 14:13
[2022-02-10 12:53] LABS: Basophils # (A) 0.1 k/uL (0-0.2); Basophils % (A) 1 %; Eosinophils # (A) 0.2 k/uL (0-0.7); Eosinophils % (A) 2 %; HCT 38.5 % (34.0-46.0); HGB 12.5 gm/dL (11.4-16.0); Hypochromasia Slight; Lymphocytes # (A) 1.7 k/uL (1.0-4.8); Lymphocytes % (A) 19 %; MCH 25.6 pg (25.0-35.0); MCHC 32.4 g/dL (31.0-37.0); MCV 79.2 fL (80.0-100.0); Mean Platelet Volume 8.7; Monocytes # (A) 0.3 k/uL (0-1.0); Monocytes % (A) 3 %; Neutrophils # (A) 6.6 k/uL (1.3-7.7); Neutrophils % (A) 73 %; Platelet Count 273 k/uL (150-450); RBC 4.86 m/uL (3.80-5.40); RDW 14.6 % (11.5-15.5); WBC 8.9 k/uL (3.8-10.6)
[2022-02-10 13:02] LABS: African American GFR (CKD) >90 (>60 ml/min/1.73 sqM); Anion Gap 7 mmol/L; Blood Urea Nitrogen 9 mg/dL (7-17); Calcium 9.5 mg/dL (8.4-10.2); Carbon Dioxide 26 mmol/L (22-30); Chloride 108 mmol/L (98-107); Glucose 94 mg/dL (74-99); Non-African American GFR(CKD) >90 (>60 ml/min/1.73 sqM); Sodium 141 mmol/L (137-145)
[2022-02-10 13:19] LABS: HCG,Quantitative Serum 1741.5 mIU/mL
[2022-02-10 13:20] LABS: Appearance,Urine Clear (Clear); Bacteria,Urine Rare /hpf; Bilirubin,Urine Negative (Negative); Blood,Urine Large (Negative); Color,Urine Yellow; Glucose,Urine (UA) Negative (Negative); Ketones,Urine Negative (Negative); Leukocyte Esterase,Urine Negative (Negative); Mucus,Urine Rare /hpf; Nitrite,Urine Negative (Negative); PH, Urine 7.5 (5.0-8.0); Protein,Urine Trace (Negative); RBC,Urine 1 /hpf (0-5); Squamous Epithelial Cell,Urine 1 /hpf (0-4); Urobilinogen,Urine <2.0 mg/dL (<2.0); WBC,Urine 2 /hpf (0-5)
--- NOTE | 2022-02-10 13:59 | US ---
EXAMINATION TYPE: Transabdominal DATE OF EXAM: 02/10/2022 1:09 PM COMPARISON: 04/23/2018. CLINICAL HISTORY: vaginal bleeding in . EXAM PERFORMED: Transvaginal (TV) and Transabdominal (TA) EXAM MEASUREMENTS: GESTATIONAL AGE / DATING Dates by LMP: 12/27/2021 (6 weeks/3 days) EDC: 10/03/2022 Dates by First Scan: No previous this is first scan Dates by Current Scan for: Unable to date by today's study MATERNAL ANATOMY Uterus: Heterogeneous endometrium Right Ovary: wnl Left Ovary: Not Visualized Post CDS / Adnexa: wnl Presence of free fluid: No Presence of corpus luteal cyst: No Presence of subchorionic bleed: Yes GESTATION / SURVEY CRL: No pole visualized MSD: 0.56cm Out of Range Heart Rate: No heart tone visualized to document IUP: No IUP seen at this time Date of LMP: 12/27/2021 Beta HcG (if available): Pending IMPRESSION: Small anechoic intrauterine cystic structure without evidence for yolk sac or pole at this time . This is thought to represent an early gestational sac if the patient's beta hCG positive , however ectopic and abnormal intrauterine cannot be ruled out based on this exam alone. F ollow-up with pelvic ultrasound in 7-10 days and serial beta-hCG studies are recommended to en sure f urther development of the fetus.
== END 2022-02-10 14:32 | disposition home or self-care (01) ==
LOC: EC 10:03
DX: O20.0 Threatened abortion (principal); O99.344 Other mental disorders complicating childbirth; O99.321 Drug use complicating pregnancy, first trimester; O99.341 Other mental disorders complicating pregnancy, first trimester; O99.511 Diseases of the respiratory system complicating pregnancy, first trimester; F41.9 Anxiety disorder, unspecified; F31.9 Bipolar disorder, unspecified; J45.909 Unspecified asthma, uncomplicated; F12.90 Cannabis use, unspecified, uncomplicated; Z3A.01 Less than 8 weeks gestation of pregnancy; Z79.899 Other long term (current) drug therapy
CPT/HCPCS: 36415; 76801; 76817; 80048; 81001; 84702; 85025; 99284

== ENCOUNTER 2023-06-01 16:43 | Outpatient (CLI) | payer OTHER ==
--- NOTE | 2023-06-01 18:39 | US ---
EXAMINATION TYPE: US OB BPP wo non-stress DATE OF EXAM: 06/01/2023 COMPARISON: NONE CLINICAL INDICATION: Female, 28 years old with history of FHR deceleration at office NST; decreased h eart rate at OB TECHNIQUE: Transabdominal (TA). Scoring by the senior developer during real-time assessment. FINDINGS: BPP PARAMETERS: PRESENTATION: Vertex LIE: Longitudinal?? HEART RATE: 135 bpm RHYTHM: Normal JARETT: 11.2 DIAPHRAGM IMAGED: Yes BPP SCORIN. Breathin (1 episode of breathing of 30 second duration in 30 minutes of scanning time) 2. Movement: 2 (at least 3 discrete body movements in 30 minutes) 3. Tone: 2 (1 episode of active flexion/extension of limb) 4. JARETT: 2 (JARETT index > 5cm) TELE RN NOTES: 10/07 IMPRESSION: TOTAL SCORE: 8 /
[2023-06-01 19:08] VITALS: BP 148/69; PULSE 94; RESP 18; TEMP 97.6
== END 2023-06-01 18:15 | disposition home or self-care (01) ==
LOC: FBPOP 16:43
PROVIDERS: ATTEND Obstetrics & Gynecology
DX: O13.3 Gestational [pregnancy-induced] hypertension without significant proteinuria, third trimester (principal); Z3A.31 31 weeks gestation of pregnancy
CPT/HCPCS: 59025; 76819

== ENCOUNTER 2023-07-01 06:00 | Inpatient (IN) | payer OTHER ==
[2023-07-01 06:25] LABS: Glucose,Whole Blood 100 mg/dL (70-110)
[2023-07-01] MEDS: LACTATED RINGERS 1,000 ML IV SCH (06:30)
[2023-07-01] MEDS ORDERED: LIDOCAINE 0.5% (PF) 5 MG/ML (50 ML SDV) SQ PRN (06:58)
[2023-07-01] MEDS ORDERED: miSOPROStoL 200 MCG TAB PO PRN (06:58)
[2023-07-01] MEDS ORDERED: TERBUTALINE 1 MG/ML VIAL SQ PRN (06:58)
[2023-07-01] MEDS ORDERED: CARBOPROST TROMETHAMINE 250 MCG/ML 1 ML AMP IM PRN (06:58)
[2023-07-01] MEDS ORDERED: OXYTOCIN 10 UNIT/ML 1 ML VIAL IM PRN (06:58)
[2023-07-01] MEDS ORDERED: METHYLERGONOVINE 0.2 MG/ML 1 ML AMP IM PRN (06:58)
[2023-07-01] MEDS ORDERED: TRANEXAMIC 1,000 MG/100ML-NACL 1,000 MG in EMPTY BAG 1 BAG IV PRN (06:58)
[2023-07-01 07:18] VITALS: RESP 16
[2023-07-01] MEDS: OXYTOCIN 30 UNITS/500 ML NS 30 UNIT in SALINE 1 500ML.BAG IV SCH (07:21)
[2023-07-01 07:39] LABS: Appearance,Urine Cloudy (Clear); Bilirubin,Urine Negative (Negative); Blood,Urine Negative (Negative); Color,Urine Yellow; Glucose,Urine (UA) Negative (Negative); Ketones,Urine Negative (Negative); Leukocyte Esterase,Urine Small (Negative); Mucus,Urine Rare /hpf; Nitrite,Urine Negative (Negative); PH, Urine 6.5 (5.0-8.0); Protein,Urine Trace (Negative); RBC,Urine 1 /hpf (0-5); Specific Gravity,Urine 1.025 (1.001-1.035); Squamous Epithelial Cell,Urine 23 /hpf (0-4); Urobilinogen,Urine <2.0 mg/dL (<2.0); WBC,Urine 3 /hpf (0-5)
[2023-07-01 07:52] LABS: Amphetamine Screen,Urine Not Detected (NotDetected); Barbiturate Screen,Urine Not Detected (NotDetected); Benzodiazepines Screen,Urine Not Detected (NotDetected); Cocaine Screen,Urine Not Detected (NotDetected); Methadone Screen, Urine Not Detected (NotDetected); Opiate Screen,Urine Not Detected (NotDetected); Oxycodone Screen, Urine Not Detected (NotDetected); Phencyclidine Screen,Urine Not Detected (NotDetected); Tricyclic Antidepressant,Urine Not Detected (NotDetected); Urn Cannabinoid Scrn Detected (NotDetected)
[2023-07-01 08:46] LABS: ALT 15 U/L (4-34); AST 19 U/L (14-36); African American GFR (CKD) >90 (>60 ml/min/1.73 sqM); Blood Urea Nitrogen 10 mg/dL (7-17); LDH 194 U/L (120-246); Non-African American GFR(CKD) >90 (>60 ml/min/1.73 sqM)
--- NOTE | 2023-07-01 09:00 | P.HPOB ---
History of Present Illness H&P Date: 07/01/23 Chief Complaint: Chronic Hypertension, Gestational Diabetes Ms. Chavez is a 28 year old at 37 weeks and 0 days with EDC or 07/22/23 by LMP consistent with 12 week US who presents for medical induction of labor for gestational hypertension. Of note, the patient was late to have her 1 hour GTT and then was unable to find childcare and availability in her schedule to complete the 3 hour GTT. Fasting glucose this morning was 100. She is presumed gestational diabetes. The has otherwise been complicated by maternal bipolar disorder for which she takes Lamotrigine and follow with Dr. Gates. The patient also suffers from asthma, which she takes symbicort and albuterol as needed for. The fetus is estimated in the 54%ile for growth based on a 35 week US. The patient has been undergoing non-stress tests weekly for her complications which has all been reassuring. Obstetric history: 2 FTVD, no complications, largest baby 6#9oz; 3 SABs work-up: blood type A positive, antibody screen negative, rubella non- immune, VDRL non-reactive, HBsAg negative, HIV negative, gonorrhea negative, chlamydia negative, 1 hour GTT elevated at 141, GBS negative. Past Medical History Past Medical History: Asthma History of Any Multi-Drug Resistant Organisms: None Reported Past Surgical History: No Surgical Hx Reported Past Anesthesia/Blood Transfusion Reactions: No Reported Reaction Past Psychological History: Anxiety, Bipolar, PTSD Smoking Status: Never smoker Past Alcohol Use History: None Reported Past Drug Use History: Marijuana - Past Family History Mother Family Medical History: Thyroid Disorder Medications and Allergies Home Medications Medication Instructions Recorded Confirmed Type Montelukast [Singulair] 10 mg PO DAILY 04/23/18 06/01/23 History Albuterol Sulfate [Albuterol 2 puff PO RT-Q6H PRN 02/10/22 06/01/23 History Sulfate Hfa] Budesonide/Formoterol Fumarate 2 puff INHALATION RT-DAILY 02/10/22 06/01/23 History [Symbicort 160-4.5 Mcg Inhaler] Vit No.179/Iron/Folic 1 each PO DAILY 06/01/23 06/01/23 History [ Tablet] busPIRone HCl [Buspar] 5 mg PO BID 06/01/23 06/01/23 History lamoTRIgine [LaMICtal] 25 mg PO BID 06/01/23 07/01/23 History Allergies Allergy/AdvReac Type Severity Reaction Status Date / Time No Known Allergies Allergy Verified 07/01/23 06:26 Exam Vital Signs Temp Pulse Resp BP Pulse Ox 07/01/23 06:15 97.2 F L 90 16 142/68 97 Intake and Output 06/30/23 07/01/23 07/01/23 22:59 06:59 14:59 Other: Weight 98.883 kg Focused physical exam is performed. This is a healthy-appearing in no apparent distress. Breathing is non-labored. Abdomen is gravid and non-tender. Cervical exam is 2 cm, 50 effacement, -3 station. AROM is undertaken with clear fluid noted. Extremities non-tender and non-edematous. heart tones are Category I and tocometer is graphing contractions every 2-4 minutes. Results Abnormal Lab Results - Last 24 Hours (Table) 07/01/23 07/01/23 Range/Units 07:02 07:02 Urine Appearance Cloudy H (Clear) Urine Protein Trace H (Negative) Ur Leukocyte Esterase Small H (Negative) Ur Squamous Epith Cells 23 H (0-4) /hpf Urine Mucus Rare H (None) /hpf U Marijuana (THC) Screen Detected H (NotDetected) Assessment and Plan Assessment: 28 year old at 37 weeks being medically induced for gestational HTN and presumed gestational diabetes Plan: Admit, NPO, pitocin per protocol, epidural prn, continuous EFM and tocometer, close monitoring of patient. Fasting glucose 100. Anticipate vaginal delivery.
[2023-07-01 09:08] LABS: Anisocytosis Slight; Basophils # (A) 0.1 k/uL (0-0.2); Basophils % (A) 0 %; Eosinophils # (A) 0.1 k/uL (0-0.7); Eosinophils % (A) 1 %; HGB 12.1 gm/dL (11.4-16.0); Hypochromasia Slight; Lymphocytes # (A) 2.2 k/uL (1.0-4.8); Lymphocytes % (A) 19 %; MCHC 31.8 g/dL (31.0-37.0); MCV 84.9 fL (80.0-100.0); Monocytes # (A) 0.5 k/uL (0-1.0); Monocytes % (A) 4 %; Neutrophils # (A) 8.7 k/uL (1.3-7.7); Neutrophils % (A) 74 %; Platelet Count 302 k/uL (150-450); Poikilocytosis Slight; RBC 4.47 m/uL (3.80-5.40); RDW 16.9 % (11.5-15.5); WBC 11.8 k/uL (3.8-10.6)
[2023-07-01 09:50] LABS: Creatinine,Urine Random 170.8 mg/dL; Protein/Creatinine Ratio,Urine 0.07
[2023-07-01 09:56] LABS: Uric Acid 4.9 mg/dL (3.7-7.4)
[2023-07-01] MEDS ORDERED: HYDROCORTISONE 2.5% RECTAL CREAM 30 GM TUBE RECTAL PRN (14:16)
[2023-07-01] MEDS ORDERED: SIMETHICONE 80 MG CHEWABLE PO PRN (14:16)
[2023-07-01] MEDS ORDERED: diphenhydrAMINE 50 MG CAP PO PRN (14:16)
[2023-07-01] MEDS ORDERED: ZOLPIDEM 5 MG TAB PO PRN (14:16)
[2023-07-01] MEDS ORDERED: diphenhydrAMINE 25 MG CAP PO PRN (14:16)
[2023-07-01] MEDS ORDERED: diphenhydrAMINE 50 MG/ML 1 ML VIAL IVP PRN ×2 (14:16)
[2023-07-01] MEDS ORDERED: LANOLIN CREAM 1 GM TUBE TOPICAL PRN (14:16)
--- NOTE | 2023-07-01 14:16 | P.PROBDLV ---
Vaginal Delivery Note - . Vaginal Delivery Note: DATE OF SERVICE: 07/01/2023 PROCEDURE: Normal Vaginal Delivery ATTENDING: Dr. Lena Sanchez MD ESTIMATED BLOOD LOSS: 200 mL FINDINGS: VFI, Apgars . Weight 6 pounds and 6 ounces (2905 grams) PROCEDURE: Ms. Chavez is a 28 year old at 37 weeks presenting to labor and delivery for induction of labor for gestational hypertension and suspected gestational diabetes. For further details, please review the admitting H&P. Pitocin was titrated per protocol. AROM was performed at 743 revealing clear amniotic fluid. Epidural anesthesia was obtained per patient request. The patient was completely dilated at 1350. A viable female was delivered o jose an intact perineum at 1357. The infant was placed on the maternal abdomen and bulb suctioned. The infant was noted to be spontaneously crying. Cord was clamped and cut after a 30-second delay. The was handed off to the pediatric team. Placenta was delivered whole with gentle cord traction. Oxytocin was started to facilitate uterine tone. Uterine fundus was found to be firm and below the umbilicus upon fundal massage. Thorough examination of the cervix, vagina, periurethral area, and perineum revealed a small superficial right periurethral laceration that was hemostatic and did not require repair. The patient is stable and allowed to begin the bonding process.
[2023-07-01] MEDS: IBUPROFEN 600 MG TAB PO PRN (14:38)
[2023-07-01] MEDS: BENZOCAINE/MENTHOL SPRAY 1 GM/SPRAY AEROSOL TOPICAL PRN (14:39)
[2023-07-01] MEDS: MEASLES-MUMPS-RUBELLA VACC/PF 12,500 UNIT/0.5 ML VIAL SQ ONE (16:16)
[2023-07-01] MEDS: ACETAMINOPHEN TAB 325 MG TAB PO PRN (20:11)
[2023-07-01] MEDS: SENNOSIDES-DOCUSATE SODIUM 1 EACH TAB PO SCH (20:12)
[2023-07-02 07:52] LABS: Anisocytosis Slight; Basophils # (A) 0.1 k/uL (0-0.2); Basophils % (A) 1 %; Eosinophils # (A) 0.1 k/uL (0-0.7); Eosinophils % (A) 1 %; HCT 31.7 % (34.0-46.0); Hypochromasia Slight; Lymphocytes # (A) 2.6 k/uL (1.0-4.8); Lymphocytes % (A) 23 %; MCH 27.2 pg (25.0-35.0); MCHC 31.2 g/dL (31.0-37.0); MCV 87.1 fL (80.0-100.0); Mean Platelet Volume 8.5; Monocytes # (A) 0.5 k/uL (0-1.0); Monocytes % (A) 4 %; Neutrophils % (A) 71 %; Platelet Count 218 k/uL (150-450); RBC 3.64 m/uL (3.80-5.40); RDW 16.7 % (11.5-15.5); WBC 11.3 k/uL (3.8-10.6)
[2023-07-02 07:55] LABS: HGB 9.9 gm/dL (11.4-16.0)
--- NOTE | 2023-07-02 08:29 | P.DS ---
Providers Date of admission: 07/01/23 06:12 Expected date of discharge: 07/02/23 Attending physician: Lena Sanchez MD Primary care physician: Giuliana Gates [facility] Course: Ms. Chavez is a 28 year old now PPD#1 s/p normal vaginal delivery after medical induction of labor for gestational hypertension and suspected gestational diabetes. The patient is doing well this morning and had no acute events overnight. She has no complaints this morning. She reports minimal lochia, passing flatus, voiding without difficulty, ambulating, and eating/drinking without nausea or vomiting. Infant doing well at bedside. She denies chest pain, shortness of breathing, fevers, or chills overnight. She denies pain or swelling in the legs. restrictions are reviewed with the patient including pelvic rest for 6 weeks. The patient is encouraged to call the office if she experiences any heavy bleeding, foul-smelling discharge, breast complaints, or any if she has any other concerns. She will follow up in the office with in 1 week for blood pressure check. Prescriptions for Motrin and Tylenol as needed for pain will be sent to her pharmacy. All questions are answered. Assessment: 28 year old now PPD#1 s/p normal vaginal delivery Patient Condition at Discharge: Good Plan - Discharge Summary Discharge Rx Participant: No New Discharge Prescriptions: New Ibuprofen [Motrin] 600 mg PO Q6HR PRN #30 tab PRN Reason: Mild Pain (Scale 1 To 3) Acetaminophen Tab [Tylenol] 650 mg PO Q6H PRN #30 tab PRN Reason: Mild Pain (Scale 1 To 3) No Action Montelukast [Singulair] 10 mg PO DAILY Budesonide/Formoterol Fumarate [Symbicort 160-4.5 Mcg Inhaler] 2 puff INH ALATION RT-DAILY lamoTRIgine [LaMICtal] 25 mg PO BID busPIRone HCl [Buspar] 5 mg PO BID Albuterol Sulfate [Albuterol Sulfate Hfa] 2 puff PO RT-Q6H PRN PRN Reason: Shortness Of Breath Vit No.179/Iron/Folic [ Tablet] 1 each PO DAILY Discharge Medication List Montelukast [Singulair] 10 mg PO DAILY 04/23/18 [History] Albuterol Sulfate [Albuterol Sulfate Hfa] 2 puff PO RT-Q6H PRN 02/10/22 [History] Budesonide/Formoterol Fumarate [Symbicort 160-4.5 Mcg Inhaler] 2 puff INHALATION RT-DAILY 02/10/22 [History] Vit No.179/Iron/Folic [ Tablet] 1 each PO DAILY 06/01/23 [History] busPIRone HCl [Buspar] 5 mg PO BID 06/01/23 [History] lamoTRIgine [LaMICtal] 25 mg PO BID 06/01/23 [History] Acetaminophen Tab [Tylenol] 650 mg PO Q6H PRN #30 tab 07/02/23 [Rx] Ibuprofen [Motrin] 600 mg PO Q6HR PRN #30 tab 07/02/23 [Rx] Follow up Appointment(s)/Referral(s): Lena Sanchez MD [STAFF PHYSICIAN] - 1 Week Activity/Diet/Wound Care/Special Instructions: Instructions 1. Do not begin any exercise program for 3 weeks. 2. Do not resume sexual relations for 6 weeks or longer if uncomfortable. 3. You may take tub baths or showers at any time. 4. You may use tampons if desired after 6 weeks. 5. Keep any areas repaired with stitches clean and dry. 6. If you are not nursing, wear a good fitting, supportive bra during the day and limit fluid intake for at least 1 week to prevent breast engorgement. 7. Call the office, , within the next week to make appointment for your 6 week checkup if it has not already been made. 8. Report any of the following occurrences to the doctor promptly: a. Heavy, excessive bleeding b. Chills, fever c. Burning or frequency of urination d. Pain or redness and breasts if nursing e. Increasing pain or swelling of vulva (stitches). In addition to the above instructions, the following additional should be followed: 1. No heavy lifting or straining (exercising) until after 6 week checkup. 2. Keep abdominal incision clean and dry: You may wear a dressing if more comfortable. 3. Make office appointment for 2 weeks after delivery date. Discharge Disposition: HOME SELF-CARE
[2023-07-02 08:38] VITALS: BP 110/57; PULSE 71; TEMP 97.9
== END 2023-07-02 14:50 | disposition home or self-care (01) | DRG 560 ==
LOC: 4FBP 06:12
PROVIDERS: ADMIT Obstetrics & Gynecology; ATTEND Obstetrics & Gynecology
PROC: 10E0XZZ Delivery of Products of Conception, External Approach (ICD-10-PCS; principal; 2023-07-01)
PROC: 10907ZC Drainage of Amniotic Fluid, Therapeutic from Products of Conception, Via Natural or Artificial Opening (ICD-10-PCS; 2023-07-01)
PROC: 3E033VJ Introduction of Other Hormone into Peripheral Vein, Percutaneous Approach (ICD-10-PCS; 2023-07-01)
PROC: 0UQMXZZ Repair Vulva, External Approach (ICD-10-PCS; 2023-07-01)
DX: O13.4 Gestational [pregnancy-induced] hypertension without significant proteinuria, complicating childbirth (principal); F31.9 Bipolar disorder, unspecified; O24.429 Gestational diabetes mellitus in childbirth, unspecified control; F43.10 Post-traumatic stress disorder, unspecified; J45.909 Unspecified asthma, uncomplicated; O71.82 Other specified trauma to perineum and vulva; O99.344 Other mental disorders complicating childbirth; O99.52 Diseases of the respiratory system complicating childbirth; Z37.0 Single live birth; Z3A.37 37 weeks gestation of pregnancy; Z79.51 Long term (current) use of inhaled steroids; Z79.899 Other long term (current) drug therapy
CPT/HCPCS: 80306; 81001; 82565; 82570; 83615; 84156; 84450; 84460; 84520; 84550; 85025; 86850; 86900; 86901; 90707

== ENCOUNTER 2023-11-26 08:05 | Day surgery (SDC) | payer OTHER ==
[2023-11-25 08:39] VITALS: BMI 35.1
[~2023-11-26 08:05] MED LIST: HYDROmorphone 0.5 MG/0.5 ML SYRINGE IVP PRN; LIDOCAINE 1% (10MG/ML) FOR IV START INTRADERMA PRN; Pre Op ABX Message 1 EACH MISC MISCELLANE ONE; fentaNYL (PF) 50 MCG/ML 2 ML AMP IVP PRN
--- NOTE | 2023-11-26 08:21 | P.HPOB ---
History of Present Illness H&P Date: 11/26/23 Chief Complaint: Large dermoid cyst Ms. Jones is a 28 year old who presents for pelvic US review and surgical consultation. Pelvic US shows an 8cm anteverted uterus, homogenous. Endometrium is within normal limits. Right ovary is unremarkable. A 9 x 7 x 5cm left ovarian mass consistent with a dermoid cyst is re-demonstrated on the left ovary. Past Medical History Past Medical History: Asthma, Hypertension Additional Past Medical History / Comment(s): Hx gestational hypertension. History of Any Multi-Drug Resistant Organisms: MRSA Date of last positivie culture/infection: 2013 MDRO Source:: thigh Past Surgical History: No Surgical Hx Reported Additional Past Surgical History / Comment(s): "Put out to get stitches in head in 3rd grade". Past Anesthesia/Blood Transfusion Reactions: No Reported Reaction Smoking Status: Never smoker - Past Family History Mother Family Medical History: Cancer Additional Family Medical History / Comment(s): Thyroid cancer. Medications and Allergies Home Medications Medication Instructions Recorded Confirmed Type Montelukast [Singulair] 10 mg PO HS 04/23/18 11/25/23 History Albuterol Sulfate [Albuterol 2 puff PO RT-Q6H PRN 02/10/22 11/25/23 History Sulfate Hfa] Budesonide/Formoterol Fumarate 2 puff INHALATION QAM 02/10/22 11/25/23 History [Symbicort 160-4.5 Mcg Inhaler] busPIRone HCl [Buspar] 5 mg PO BID 06/01/23 11/25/23 History lamoTRIgine [LaMICtal] 25 mg PO BID 06/01/23 11/25/23 History Allergies Allergy/AdvReac Type Severity Reaction Status Date / Time No Known Allergies Allergy Verified 11/25/23 08:25 Exam Focused physical exam is performed. This is a healthy-appearing in no apparent distress. Breathing is non-labored. Abdomen is soft and non-tender. Extremities non-tender and non-edematous. Assessment and Plan Assessment: 28 year old presenting for laparoscopic left oophorectomy, possible laparotomy Plan: Risks, benefits, and alternatives to Laparoscopic Left Oophorectomy, Possible Laparotomy are discussed with the patient including risk of bleeding, infection, damage to surrounding structures, and post-operative VTE. All questions answered. The patient desires to proceed with surgery as discussed. The patient is exclusively , her child does not take a bottle. Recommend a nursing session immediately before surgery. Make anesthesia aware of status to guide medication choices. Recommend use of medications that do not require pumping and dumping, which are most.
[2023-11-26] MEDS: ONDANSETRON 4 MG/2 ML VIAL IVP ONE (09:02)
[2023-11-26] MEDS: LACTATED RINGERS 1,000 ML IV SCH (09:02)
[2023-11-26] MEDS: DEXAMETHASONE SOD PHOSPHATE 4 MG/ML 1 ML VIAL IV ONE (09:03)
[2023-11-26] MEDS: IV FLUID CONTINUATION 1,000 ML IV ONE (09:03)
[2023-11-26] MEDS: MIDAZOLAM 2 MG/2 ML VIAL IV PRN (09:44)
[2023-11-26] MEDS ORDERED: PROPOFOL 10 MG/ML 20 ML VIAL IV ONE (10:11)
[2023-11-26] MEDS ORDERED: SUCCINYLCHOLINE CHLORIDE 200 MG/10 ML VIAL IV ONE (10:11)
[2023-11-26] MEDS ORDERED: NEOSTIGMINE 1 MG/ML 10 ML VIAL ONE (10:11)
[2023-11-26] MEDS ORDERED: ROCURONIUM 10 MG/ML (5 ML VIAL) IV ONE (10:11)
[2023-11-26] MEDS ORDERED: LIDOCAINE 1% INJ 10MG/ML (20 ML MDV) ONE (10:11)
[2023-11-26] MEDS ORDERED: fentaNYL (PF) 50 MCG/ML 2 ML AMP ONE (10:11)
[2023-11-26] MEDS ORDERED: GLYCOPYRROLATE 0.2 MG/ML 2 ML VIAL ONE (10:11)
[2023-11-26] MEDS ORDERED: KETOROLAC 15 MG/ML 1 ML VIAL ONE (10:11)
[2023-11-26] MEDS: BUPIVACAINE (PF) 0.25% 30 ML VIAL SQ ONE ×2 (10:40→11:10)
[2023-11-26 11:26] VITALS: RESP 16; TEMP 96.8
--- NOTE | 2023-11-26 11:36 | P.OP ---
Date of Procedure: 11/26/23 Preoperative Diagnosis: Left dermoid cyst Postoperative Diagnosis: Same Procedure(s) Performed: Laparoscopic Left Oophorectomy Implants: None Anesthesia: ESTHER Surgeon: Lena Sanchez Post Tronic Machine Operator #1: Marlen Remy Estimated Blood Loss (ml): 5 IV fluids (ml): 500 Urine output (ml): 50 Pathology: other (left ovary with dermoid cyst) Condition: stable Disposition: same day Indications for Procedure: Ms. Jones is a 28 year old with a large 10cm dermoid cyst who presents for laparoscopic left oophorectomy. Risks, benefits, and alternatives to laparoscopic left oophorectomy are discussed with the patient incuding risk of bleeding, infection, damage to surrounding structures, and need for laparotomy. All questions are answered and the patient wishes to proceed with surgery as discussed. Operative Findings: Large 10cm left dermoid cyst noted. Otherwise normal appearing uterus, bilateral fallopian tubes, and right ovary. Description of Procedure: Patient was taken to the OR with IV fluid running and pneumatic compression stockings on both legs. General anesthesia was obtained without difficulty. The patient was placed in the dorsal lithotomy position with Wilmar-type stirrups with knees bent at 30 degree angles. Examination under anesthesia revealed a normal-sized, anteverted uterus. The patient as prepared and draped. The bladder was emptied. A speculum was placed into the vagina. The anterior lip of the cervix was grasped with a single-toothed tenaculum. A uterine manipulator was introduced. A horizontal skin incision was made at the umbilical fold. The periumbilical skin was manually elevated. The Veress needle was introduced into the peritoneal cavity at a straight angle without difficulty. A saline drop test was performed to validate intraperitoneal placement. The pneumoperitoneum was established with CO2 gas to a pressure of 15mmHg. A 5mm trocar was inserted into the abdomen under direct laparoscopic visualization. Intraabdominal survey revealed lack of any visceral or vascular injury. The pelvic and abdominal anatomy was noted as above. Two additional laparoscopic assit ports were placed in the right and left lower quadrants, 10mm on the left and 5mm on the right. A Cyn Grasper was used to pharmacy picking tech the fimbriated end of the left fallopian tube and retract it away from the large dermoid cyst. The LigaSure device was used to seal and ligate the IP and uteroovarian ligaments, freeing the left ovary containing the dermoid cyst. The ovary was then placed into an endocatch specimen bag, and pulled toward the skin. The bag was opened and the cyst was decompressed, with yellow-colored mucus draining in the bag. The fascia and skin at this site was extended by a centimeter. The ovary was removed. Excellent hemostasis was noted in the abdomen. All instruments were then removed from the abdomen. The fascia of the 10mm trocar site was closed with 0-Vicryl in a running fashion. This skin at this site was closed with 4-0 Monocryl in a running fashion. The other two sites were closed with 4-0 Monocryl in an interrupted fashion. The patient tolerated the procedure well. All instruments were removed from vagina, and all counts were correct times two. The patient was taken to the recovery room in stable condition.the recovery room in stable condition. A physician rn medical surgical was utilized for the entire procedure due to the need for tissue retraction, dissection of vital structures, prevention and management of blood loss, and reduction in overall operative and anesthesia time as is the standard of care
[2023-11-26 12:59] VITALS: BP 128/71; PULSE 81
== END 2023-11-26 13:27 | disposition home or self-care (01) ==
LOC: OR 08:05
PROVIDERS: ATTEND Obstetrics & Gynecology
DX: D27.1 Benign neoplasm of left ovary
CPT/HCPCS: 81025; 88305

== ENCOUNTER 2024-06-28 21:10 | Emergency (ER) | payer OTHER ==
--- NOTE | 2024-06-28 21:38 | ED ---
Lower Extremity Injury HPI - General Chief Complaint: Extremity Injury, Lower Stated Complaint: toe pain Time Seen by Provider: 06/28/24 21:15 Source: patient, RN notes reviewed Mode of arrival: ambulatory Limitations: no limitations - History of Present Illness Initial Comments: 29-year-old female presented to emergency department for complaints of left toe and ankle pain. Patient states that yesterday she was walking [place] when she accidentally stubbed her left toes on a laundry basket and rolled her ankle. Patient denies hitting her head or loss conscious at time of the fall. She has been monica taping the 4th and 5th digits together to help with pain in addition to taking Motrin. No other acute complaints at this time. - Related Data Home Medications Medication Instructions Recorded Confirmed Montelukast [Singulair] 10 mg PO HS 04/23/18 11/26/23 Albuterol Sulfate [Albuterol 2 puff PO RT-Q6H PRN 02/10/22 11/26/23 Sulfate Hfa] Budesonide/Formoterol Fumarate 2 puff INHALATION QAM 02/10/22 11/26/23 [Symbicort 160-4.5 Mcg Inhaler] busPIRone HCl [Buspar] 5 mg PO BID 06/01/23 11/26/23 lamoTRIgine [LaMICtal] 25 mg PO BID 06/01/23 11/26/23 Previous Rx's Medication Instructions Recorded Acetaminophen Tab [Tylenol] 650 mg PO Q6H PRN #30 tab 11/26/23 Ibuprofen [Motrin] 600 mg PO Q6HR PRN #30 tab 11/26/23 oxyCODONE HCL [Roxicodone] 5 mg PO Q6HR PRN 3 Days #12 tab 11/26/23 polyethylene glycoL 3350 [Miralax] 17 gm PO DAILY PRN #527 gm 11/26/23 Allergies Allergy/AdvReac Type Severity Reaction Status Date / Time No Known Allergies Allergy Verified 06/28/24 21:19 Review of Systems ROS Statement: Those systems with pertinent positive or pertinent negative responses have been documented in the HPI. ROS Other: All systems not noted in ROS Statement are negative. Past Medical History Past Medical History: Asthma History of Any Multi-Drug Resistant Organisms: MRSA Date of last positivie culture/infection: 2013 Past Surgical History: No Surgical Hx Reported Additional Past Surgical History / Comment(s): Left ovary removal - October 2023 Past Anesthesia/Blood Transfusion Reactions: No Reported Reaction Past Psychological History: Anxiety, Bipolar, PTSD Smoking Status: Never smoker Past Alcohol Use History: None Reported Past Drug Use History: None Reported - Past Family History Mother Family Medical History: Cancer General Exam Limitations: no limitations General appearance: alert, in no apparent distress Neck exam: Present: normal inspection. Absent: tenderness, meningismus, lymphadenopathy Respiratory exam: Present: normal lung sounds bilaterally. Absent: respiratory distress, wheezes, rales, rhonchi, stridor Cardiovascular Exam: Present: regular rate, normal rhythm, normal heart sounds. Absent: systolic murmur, diastolic murmur, rubs, gallop, clicks GI/Abdominal exam: Present: soft, normal bowel sounds. Absent: distended, tende rness, guarding, rebound, rigid Left Ankle exam: Present: full ROM, tenderness, swelling. Absent: deformity Foot/Toe exam: Present: tenderness, swelling, ecchymosis. Absent: deformity Neurovascular tendon exam: Present: no vascular compromise Back exam: Present: normal inspection Skin exam: Present: warm, dry, intact, normal color. Absent: rash Course Vital Signs 06/28/24 06/28/24 21:14 22:23 Temperature 98.3 F 98.1 F Pulse Rate 86 74 Respiratory 17 18 Rate Blood Pressure 120/82 124/75 O2 Sat by Pulse 96 98 Oximetry Medical Decision Making - Medical Decision Making Was pt. sent in by a medical professional or institution (, PA, DRUG ENFORCEMENT AGENT, urgent care, hospital, or long term...) When possible be specific @ -No Did you speak to anyone other than the patient for history (EMS, parent, family, police, friend...)? What history was obtained from this source @ -No Did you review nursing and triage notes (agree or disagree)? Why? @ -I reviewed and agree with nursing and triage notes Were old charts reviewed (outside hosp., previous admission, EMS record, old EKG, old radiological studies, urgent care reports/EKG's, long term records)? Report findings @ -No old charts were reviewed Differential Diagnosis (chest pain, altered mental status, abdominal pain women, abdominal pain men, vaginal bleeding, weakness, fever, dyspnea, syncope, headache, dizziness, GI bleed, back pain, seizure, CVA, palpatations, mental health, musculoskeletal)? @ -Differential Musculoskeletal Muscular strain, contusion, ligament sprain, fracture, arthritis, septic arthritis, bursitis, cellulitis, muscle spasm, nerve compression, DVT, arterial occlusion, herpes zoster, electrolyte abnormality, tumor.... This is not meant to be in all inclusive list EKG interpreted by me (3pts min.). @ -None X-rays interpreted by me (1pt min.). @ -X-ray of the left foot and ankle reveals an acute nondisplaced oblique fracture of the fifth digit middle phalanx. CT interpreted by me (1pt min.). @ -None done U/S interpreted by me (1pt. min.). @ -None done What testing was considered but not performed or refused? (CT, X-rays, U/S, labs)? Why? @ -None What meds were considered but not given or refused? Why? @ -None Did you discuss the management of the patient with other professionals (professionals i.e. , PA, DRUG ENFORCEMENT AGENT, lab, RT, psych nurse, social psychologist, set designer, teacher, real estate utilization officer, corrections caseworker)? Give summary @ -No Was smoking cessation discussed for >3mins.? @ -No Was critical care preformed (if so, how long)? @ -No Were there social determinants of health that impacted care today? How? (Homelessness, low income, unemployed, alcoholism, drug addiction, transportation, low edu. Level, literacy, decrease access to med. care, longterm, rehab)? @ -No Was there de-escalation of care discussed even if they declined (Discuss DNR or withdrawal of care, Hospice)? DNR status @ -No What co-morbidities impacted this encounter? (DM, HTN, Smoking, COPD, CAD, Cancer, CVA, ARF, Chemo, Hep., AIDS, mental health diagnosis, sleep apnea, morbid obesity)? @ -None Was patient admitted / discharged? Hospital course, mention meds given and route , prescriptions, significant lab abnormalities, going to OR and other pertinent info. @ -Discharge. 29-year-old female presents emergency department with left foot and ankle pain. There is noted ecchymosis over the 4th and 5th digits and mild lateral malleolus soft tissue swelling. She is read with dose of Motrin. X-ray reveals a fracture to the fifth middle phalanx. Patient's toe is already monica taped. Recommend continue supportive treatment at bedside. Case discussed with Dr. Tobin Undiagnosed new problem with uncertain prognosis? @ -No Drug Therapy requiring intensive monitoring for toxicity (Heparin, Nitro, Insulin, Cardizem)? @ -No Were any procedures done? @ -No Diagnosis/symptom? @ -Distal phalanx fracture Acute, or Chronic, or Acute on Chronic? @ -Acute Uncomplicated (without systemic symptoms) or Complicated (systemic symptoms)? @ -Uncomplicated Side effects of treatment? @ -No Exacerbation, Progression, or Severe Exacerbation? @ -No Poses a threat to life or bodily function? How? (Chest pain, USA, [place], pneumonia, PE, COPD, DKA, ARF, appy, cholecystitis, CVA, Diverticulitis, Homicidal, Suicidal, threat to staff... and all critical care pts) @ -No Disposition Clinical Impression: Toe fracture Disposition: HOME SELF-CARE Condition: Good Instructions (If sedation given, give patient instructions): Toe Fracture (ED) Additional Instructions: Please return to the Emergency Department if symptoms worsen or any other concerns. Is patient prescribed a controlled substance at d/c from ED?: No Referrals: Giuliana Gates MD [Primary Care Provider] - 1-2 days Time of Disposition: 22:19
[2024-06-28] MEDS: IBUPROFEN 600 MG TAB PO STA (22:00)
--- NOTE | 2024-06-28 22:03 | XR ---
EXAMINATION TYPE: XR ankle complete LT, XR foot complete LT DATE OF EXAM: 06/28/2024 COMPARISON: NONE HISTORY: Pain, injury, ecchymosis TECHNIQUE: 3 views of the left ankle are submitted for evaluation. 3 views of the left foot are submi tted for evaluation. FINDINGS: Ankle mortise is intact. No acute fracture or ankle. There is a nondisplaced acute oblique fracture of the fifth digit middle phalanx. There is mild surrounding soft tissue swelling. Additiona l soft tissue swelling of the ankle and dorsal midfoot. 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 The joints are preserved. IMPRESSION: Acute nondisplaced oblique fracture of the fifth digit middle phalanx. [facility], , 06/28/2024 10:00 PM
[2024-06-28 22:24] VITALS: BP 124/75; PULSE 74; RESP 18; TEMP 98.1
== END 2024-06-28 22:51 | disposition home or self-care (01) ==
LOC: EC 21:10
DX: S92.532A Displaced fracture of distal phalanx of left lesser toe(s), initial encounter for closed fracture (principal); X50.1XXA Overexertion from prolonged static or awkward postures, initial encounter; Y93.01 Activity, walking, marching and hiking
CPT/HCPCS: 99283